=== PATIENT | male | born 1940 | race Caucasian/White ===

== ENCOUNTER 2016-07-03 11:25 | Observation (INO) | payer OTHER, BC ==
[~2016-07-03] VITALS: Ht 177.8 cm; Wt 102.7 kg
--- NOTE | ~2016-07-03 | EKG ---
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
--- NOTE | ~2016-07-03 | CATHLAB ---
[facility] [address] [place] [address] INVASIVE PROCEDURE REPORT Name: AMA LLANES Room #: 216-P [facility] M.R.#: [id number] Admission: 07/03/16 Attend Phys: Marko Franco Discharge: 07/04/16 Date of : 36 Date of Service: 07/05/16 0704 Report #: [id number] THIS REPORT FOR: //name// CC: Dutch Suero DATE OF SERVICE: 07/04/2016 PROCEDURES: 1. Electrocardioversion. 2. Supervision of conscious sedation. INDICATIONS: This is a 75-old-male patient with symptomatic paroxysmal atrial fibrillation. LOCK TENDER: Marko Suero M.D. SEDATION: A 2 mg of Versed and 25 of Demerol intravenously. MONITORING: Continuous electrocardiographic and oximetric. BRIEF DESCRIPTION OF PROCEDURE: Informed consent was obtained, the patient was brought to the cardiac catheterization prep and hold. The patient was sedated as stated above after patches were placed in the AP position. I utilized synchronized biphasic shock at 200 joules, 1 was obtained. This converted the patient to sinus rhythm. Subsequent to this, the patient was allowed to rest and was reversed with Narcan and Romazicon per standard protocol. There were no complications. <ELECTRONICALLY SIGNED> By: Marko Suero MD 07/06/16 0950 0704 121 Marko Suero MD /sherine
--- NOTE | ~2016-07-03 | D ---
[facility] [place] [address] [place] [address] DISCHARGE SUMMARY Name: CARRIERAMA Room #: 216-P [facility] M.Halina#: [id number] Admission: 07/03/16 Attend Phys: Marko Suero Discharge: 07/04/16 Date of : 36 Report #: [id number] THIS REPORT FOR: //name// CC: Dutch Suero DATE OF SERVICE: 07/04/2016 ADMITTING DIAGNOSIS: Symptomatic paroxysmal atrial fibrillation. DISCHARGE DIAGNOSIS: Symptomatic paroxysmal atrial fibrillation. PROCEDURE PERFORMED: Electrical cardioversion. DISCHARGE MEDICATIONS: 1. Home meds. 2. Amiodarone 400 mg p.o. b.i.d. times 1 week, q.a.m. times 1 week, then 200 mg daily. FOLLOWUP: Dr. Suero in 4 weeks. BRIEF CLINICAL HISTORY: See history and physical in the chart. HOSPITAL COURSE: The patient was admitted to the hospital and underwent uncomplicated electrical cardioversion after IV amiodarone failed to convert into sinus mechanism. Post cardioversion, he was monitored and allowed to ambulate until awake and alert and then discharged to home in stable condition to follow up with previously stated discharge instructions and medications. <ELECTRONICALLY SIGNED> By: Marko Suero MD 07/06/16 0950 0706 1218 Marko Suero MD /nt
--- NOTE | ~2016-07-03 | EKG ---
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
--- NOTE | ~2016-07-03 | H ---
[facility] [place] [address] HISTORY AND PHYSICAL Name: CARRIER,AMA MAI Room #: 216-P [facility] Annie MHalinaRHalina#: [id number] Admission: 07/03/16 Attend Phys: Marko Suero Discharge: 07/04/16 Date of : 36 Report #: [id number] THIS REPORT FOR: //name// For History and Physical, please see office documentation/handwritten note in the patient's medical record. <ELECTRONICALLY SIGNED> By: Marko Suero MD 07/06/16 0950 0757 Marko Suero MD /
[2016-07-03 12:05] VITALS: BP 144/89
[2016-07-03 12:46] LABS: HEMATOCRIT 46.1 % (42.0-52.0); HEMOGLOBIN 15.7 gm/dL (14.0-18.0); MCH 30.5 pg (26.0-34.0); MCV 89.7 fL (80.0-100.0); RBC 5.13 mil/uL (4.50-6.00); RDW 13.4 % (10.5-14.5); WBC 7.2 thou/uL (4.0-11.0)
[2016-07-03 12:57] LABS: ALBUMIN 3.8 g/dL (3.4-5.0); CALCIUM 9.8 mg/dL (8.5-10.1); CREATININE 1.1 mg/dL (0.6-1.3); POTASSIUM 3.5 mmol/L (3.5-5.1); TOTAL BILIRUBIN 0.7 mg/dL (<0.1-1.0)
[2016-07-03 16:00] VITALS: BP 137/85
[2016-07-03 19:32] VITALS: BP 144/86
[2016-07-03] MEDS ORDERED: TOPROL XL100 MG PO (21:45)
[2016-07-03] MEDS ORDERED: HYDROCHLOROTH12.5 M1 PO (21:46)
[2016-07-03] MEDS ORDERED: ELIQUIS5 MG PO (21:46)
[2016-07-03] MEDS ORDERED: LISINOPRIL5 MG PO (21:48)
[2016-07-03 23:47] VITALS: BP 156/92
[2016-07-04] VITALS (7 sets, daily range): BP systolic 151–180; BP diastolic 93–108
[2016-07-04] MEDS ORDERED: PACERONE 200 M200 M1 PO (15:14)
== END 2016-07-04 16:53 | disposition home or self-care (01) ==
LOC: 2N 11:25 → TBA 14:32 → 2N 07-04 16:53
PROVIDERS: Nurse Practitioner Gerontology
DX: I48.0 Paroxysmal atrial fibrillation (principal)
CPT/HCPCS: 27000